=== PATIENT | female | born 1950 | race Caucasian/White ===

== ENCOUNTER 2020-05-17 12:08 | Outpatient (REF) | payer MEDICARE, OTHER, SELFPAY ==
--- NOTE | 2020-05-17 14:51 | MHC.AU.P13 ---
Adult Audiological Evaluation Date of Visit: 05/17/20 Reason for Appointment: Audiological evaluation due to concern for decreased hearing. Ms. Tafoya reports that she mishears people and feels her right ear may be worse. She notes recent pain in the left ear and occasional popping sounds in her ears. Does patient feel they have a hearing loss?: Yes If Yes, Which Ear?: Both Ears When Was Hearing Difficulty First Noticed?: ~ 10 months ago Has hearing been tested previously?: No Hearing Handicap Inventory: HHIE SCORE: 12 Based on HHIE score, patient has: Mild to moderate perceived hearing handicap Ear History: Recent Ear Pain: Left Ear Family History of Hearing Loss?: Yes: Father History of Ear Wax Buildup: Both Ears Blocked/Full Sensation in Ear(s): Occasionally Medical History: Medical History: Dizziness or Unsteadiness, Heart Problems Medical History (Other): 4 c-sections (1977, 1978, 1986, 1988), Cone biopsy in 1979 Medication List: Vitamin D-3 1000 iu, calcium, zinc, vitamin c, magnesium, biotin, Vitamin K2 - MK 7, Flaxseed oil, Lysine Otoscopy: Right Ear: Occluding cerumen. Unable to view TM. Deferred cerumen removal today. Left Ear: Unremarkable Tympanometry: Right Ear: Normal Middle Ear System (Type A) Left Ear: Normal Middle Ear System (Type A) Hearing Evaluation: Transducer(s) Used: Circumaural Headphones, Bone Conduction Method: Conventional Audiometry Stimuli Used: Pure Tones Right Ear: Description of Hearing: Normal hearing at 250 Hz, sloping to a mild sensorineural hearing loss at 500 Hz, rising to normal hearing from 0312-6942 Hz, and sloping to a mild hearing loss at 8000 Hz. Left Ear: Description of Hearing: Normal hearing at 250 Hz, sloping to a mild sensorineural hearing loss at 500-1000 Hz, rising to normal hearing from 7282-6257 Hz. Speech Recognition Threshold (SRT): Method Used: Monitored Live Voice Stimuli Used: Spondee Words Right Ear: 25 dBHL Left Ear: 25 dBHL Word Discrimination: Method: Recorded Lists Word Lists Used: NU-6 Right Ear: 100% at 65 dBHL Left Ear: 100% at 65 dBHL Recommendations: Recommendations: No further audiological action is indicated at this time. Audiological re-evaluation if changes are noted. Amplification is not warranted at this time. Follow-up with physician for cerumen removal. Diagnosis: Primary Diagnosis: H90.3 Bilateral Sensorineural Hearing Loss Secondary Diagnosis: H61.21 Impacted Cerumen, Right Ear Services Performed: Services Performed: Comprehensive Audiological Evaluation (CPT 44497) Tympanometry (CPT 46656) Signature: Provider: Summer Lovell, CCC-A
== END 2020-05-17 12:09 | disposition home or self-care (01) ==
LOC: HO.SH 12:08
PROVIDERS: Visit Provider Internal Medicine
DX: H90.3 Sensorineural hearing loss, bilateral (principal); H61.21 Impacted cerumen, right ear
CPT/HCPCS: 92557; 92567

== ENCOUNTER 2021-01-03 11:42 | Outpatient (REF) | payer MEDICARE, OTHER, SELFPAY ==
--- NOTE | ~2021-01-03 | MM_ITS ---
EXAMINATION: MM SCREENING DIGITAL BREAST TOMOSYNTHESIS, BILATERAL CLINICAL INFORMATION: Screening. Asymptomatic. The lifetime risk of breast cancer based on the Tyrer-Cuzick Model is 3%. COMPARISON: Mammography: 07/18/2018, 03/20/2013 TECHNIQUE: Digital breast tomosynthesis is performed in both the craniocaudal and mediolateral oblique views along with computer-aided detection (CAD). Synthesized 2D images are generated from the tomosynthesis. Additional left MLO view is provided. FINDINGS: The breasts are heterogeneously dense, which may obscure small masses (ACR BI-RADS breast composition Category c). There are no significant masses, abnormal calcifications, or other abnormalities. There are some scattered uniform punctate round calcifications in each breast. The axilla and skin contours are unremarkable. MM/MM tomosynthesis screening BI IMPRESSION: No mammographic evidence of malignancy. ASSESSMENT: BI-RADS 2: Benign RECOMMENDATION: Routine annual mammography screening. This patient's information was entered into a reminder system with a target due date for their next mammogram.
== END 2021-01-03 11:43 | disposition home or self-care (01) ==
LOC: HO.MAMMO 11:42
PROVIDERS: Visit Provider Internal Medicine
DX: Z12.31 Encounter for screening mammogram for malignant neoplasm of breast (principal)
CPT/HCPCS: 77063; 77067

== ENCOUNTER 2021-06-02 10:30 | Outpatient (REF) | payer MEDICARE, OTHER, SELFPAY ==
--- NOTE | ~2021-06-02 | XR_ITS ---
EXAMINATION: XR hip LT w PEL1V CLINICAL INFORMATION: Reason for Exam PAIN IN LEFT HIP COMPARISON: None. TECHNIQUE: Two views of the left hip and one view of the pelvis XR/XR hip LT w PEL1V FINDINGS/IMPRESSION: No acute fracture or dislocation. Hip joint spaces are preserved. Mild degenerative changes of the sacroiliac joints with subchondral sclerosis. Calcified phleboliths in the pelvis.
== END 2021-06-02 10:31 | disposition home or self-care (01) ==
LOC: HO.XRAY 10:30
PROVIDERS: PCP Internal Medicine; Visit Provider Internal Medicine
DX: M25.552 Pain in left hip (principal)
CPT/HCPCS: 73502

== ENCOUNTER 2021-07-05 13:11 | Outpatient (REF) | payer MEDICARE, OTHER, SELFPAY ==
[2021-07-05 13:48] LABS: Appearance Urine CLEAR; Color Urine ORANGE; Glucose Urine UA 100 MG/DL (NEG); Leukocyte Esterase Urine 2+ (NEG); Specific Gravity - Urine 1.015 (1.005-1.025); UACC Culture Trigger YES; Urine Blood TRACE (NEG); Urine Ketones NEG (NEG); Urine Protein 1+ MG/DL (NEG-TRACE)
[2021-07-05 13:57] LABS: Bacteria Urine TRACE /LPF; Mucus Urine TRACE /LPF; RBC Urine 0-2 /HPF (0); Squamous Epithelial Cell Urine TRACE /LPF
== END 2021-07-05 13:12 | disposition home or self-care (01) ==
LOC: HO.LNP 13:11
PROVIDERS: Visit Provider Physician Assistant Medical
DX: R30.0 Dysuria (principal)
CPT/HCPCS: 81001; 87086

== ENCOUNTER → 2021-08-04 13:48 | Outpatient (BNVA) | payer MEDICARE, OTHER, SELFPAY | PROVIDERS: PCP Internal Medicine; Visit Provider Physician Assistant | DX: M54.16 Radiculopathy, lumbar region (principal) | CPT/HCPCS: 99202 ==

== ENCOUNTER 2021-11-29 09:03 | Outpatient (REF) | payer MEDICARE, SELFPAY ==
[2021-11-29 11:23] LABS: Appearance Urine HAZY; Glucose Urine UA 100 MG/DL (NEG); Leukocyte Esterase Urine 2+ (NEG); Nitrite Urine POS (NEG); Specific Gravity - Urine 1.015 (1.005-1.025); UACC Culture Trigger YES; Urine Blood 1+ (NEG); Urine Ketones NEG (NEG); Urine Protein 1+ MG/DL (NEG-TRACE)
[2021-11-29 12:35] LABS: Color Urine ORANGE
[2021-11-29 12:36] LABS: WBC Urine 50-75 /HPF (0-4)
[2021-11-29 12:37] LABS: Squamous Epithelial Cell Urine 1+ /LPF
== END 2021-11-29 09:04 | disposition home or self-care (01) ==
LOC: HO.LNP 09:03
PROVIDERS: Visit Provider Physician Assistant Medical
DX: R30.0 Dysuria (principal)
CPT/HCPCS: 81001; 87086

== ENCOUNTER 2022-01-09 11:57 | Outpatient (REF) | payer MEDICARE, SELFPAY ==
--- NOTE | ~2022-01-09 | MM_ITS ---
EXAMINATION: MM SCREENING DIGITAL BREAST TOMOSYNTHESIS, BILATERAL CLINICAL INFORMATION: Screening. Asymptomatic. The lifetime risk of breast cancer based on the Tyrer-Cuzick Model is 5%. COMPARISON: Mammography: 01/03/2021, 07/18/2018, 03/20/2013 TECHNIQUE: Digital breast tomosynthesis is performed in both the craniocaudal and mediolateral oblique views along with computer-aided detection (CAD). Synthesized 2D images are generated from the tomosynthesis. FINDINGS: The breasts are heterogeneously dense, which may obscure small masses (ACR BI-RADS breast composition Category c). Parenchymal pattern is similar to prior exams and there is no developing density or interval mass or architectural abnormality. The axilla and skin contours are unremarkable. There are some punctate calcifications again seen in both breasts. No significant changes on right. There are questionable increased calcifications versus superimposed digital processing artifact posterior central and posterior lower inner breast. Patient will be recalled for additional imaging. MM/MM tomosynthesis screening BI IMPRESSION: Left: -Question increased punctate calcifications versus superimposed digital processing artifact posterior central/posterior lower inner breast. Right: -No mammographic evidence of malignancy. ASSESSMENT: BI-RADS 0: Incomplete - Need Additional Imaging Evaluation RECOMMENDATION: 1. Additional views of the left breast (magnification CC, magnification LM). 2. Radiology department staff will contact the patient for additional imaging. This patient's information was entered into a reminder system with a target due date for their next mammogram.
--- NOTE | ~2022-01-09 | MM_ITS ---
EXAMINATION: BONE DENSITOMETRY CLINICAL INDICATION: Osteopenia. COMPARISON: Baseline BD dated 03/10/2019. TECHNIQUE: Using a PresenceID DXA System (software version: 13.1) manufactured by [employer], dual-energy x-ray absorptiometry was performed of the lumbar spine and left hip. The images are of good technical quality. Summary results are attached. FINDINGS: AP SPINE L1-L4: Current: BMD 1.131 g/cm2, Z-score 1.8, T-score -0.4, normal, 4.6% decrease from baseline (<5% change is not significant). Baseline: BMD 1.186 g/cm2. LEFT FEMUR, NECK: Current: BMD 0.814 g/cm2, Z-score 0.5, T-score -1.6, osteopenia. Baseline: BMD 0.786 g/cm2. LEFT FEMUR, TOTAL: Current: BMD 0.899 g/cm2, Z-score 1.1, T-score -0.9, normal, 2.5% decrease from baseline (<5% change is not significant). Baseline: BMD 0.922 g/cm2. IDENTIFIED RISK FACTORS: Menopause. HISTORY OF FRACTURE: None listed. MEDICATIONS: Calcium supplements or multivitamin, vitamin D. MM/XR DEXA axial skeleton IMPRESSION: 1. DIAGNOSIS: Osteopenia based on the lowest T-score value of -1.6 in the femoral neck applying World Health Organization criteria. 2. 10-YEAR FRACTURE RISK PREDICTION, FRAX: Major osteoporotic fracture (clinical spine, forearm, hip or shoulder) 9.7%. Hip fracture 1.8%. 3. Treatment Recommendations: NOF guidelines recommend consideration for treatment in postmenopausal women and men age 50 and older presenting with the following: -A hip or vertebral (clinical or morphometric) fracture. -T-score less than or equal to -2.5 at the femoral neck or spine after appropriate evaluation to exclude secondary causes. -Low bone mass at the hip or spine and a 10-year fracture probability by FRAX of greater than or equal to 3% for hip fracture or greater than or equal to 20% for major osteoporotic fracture based on the [place] adapted WHO algorithm. 4. Other Recommendations: All treatment decisions require clinical judgment and consideration of individual patient factors, including patient preferences, comorbidities, previous drug use, risk factors not captured in the FRAX model (e.g. frailty, falls, vitamin D deficiency, increased bone turnover, interval significant decline in bone density) and possible under or overestimation of fracture risk by FRAX. Additional medical evaluation for secondary cause of low bone mineral density may be appropriate. FUTURE SCAN RECOMMENDATION: People with diagnosed cases of osteoporosis or at high risk for fracture should have regular bone mineral density tests. For patients eligible for Medicare, routine testing is allowed once every 2 years. The testing frequency can be increased to one year for patients who have rapidly progressing disease, those who are receiving or discontinuing medical therapy to restore bone mass, or have additional risk factors.
== END 2022-01-09 11:58 | disposition home or self-care (01) ==
LOC: HO.MAMMO 11:57
PROVIDERS: PCP Internal Medicine; Visit Provider Internal Medicine
DX: Z12.31 Encounter for screening mammogram for malignant neoplasm of breast (principal); Z13.820 Encounter for screening for osteoporosis; M85.88 Other specified disorders of bone density and structure, other site; Z78.0 Asymptomatic menopausal state
CPT/HCPCS: 77063; 77067; 77080

== ENCOUNTER 2022-01-15 08:53 | Outpatient (REF) | payer MEDICARE, SELFPAY ==
--- NOTE | ~2022-01-15 | MM_ITS ---
EXAMINATION: MM DIAGNOSTIC DIGITAL MAMMOGRAPHY, LEFT CLINICAL INFORMATION: Recall from screening for question of increased punctate calcifications versus superimposed digital processing artifact pseudo calcifications left breast. COMPARISON: Mammography: 01/09/2022, 01/03/2021, 07/18/2018 TECHNIQUE: Digital mammography is performed in the following views: Magnification CC, magnification LM x2. FINDINGS: The breasts are heterogeneously dense, which may obscure small masses (ACR BI-RADS breast composition Category c). The additional views demonstrate no grouped calcifications or change from prior studies. Results are discussed with the patient at time of visit. MM/MM added views LT IMPRESSION: Additional views show no significant changes from prior exams. ASSESSMENT: BI-RADS 2: Benign RECOMMENDATION: Routine annual mammography screening. This patient's information was entered into a reminder system with a target due date for their next mammogram.
== END 2022-01-15 08:54 | disposition home or self-care (01) ==
LOC: HO.MAMMO 08:53
PROVIDERS: PCP Internal Medicine; Visit Provider Internal Medicine
DX: R92.1 Mammographic calcification found on diagnostic imaging of breast (principal)
CPT/HCPCS: 77065

== ENCOUNTER 2022-04-22 12:26 | Outpatient (REF) | payer MEDICARE, SELFPAY | END 2022-04-22 12:27 | disposition home or self-care (01) | LOC: HO.LAB 12:26 | PROVIDERS: Visit Provider Nurse Practitioner Family | DX: R35.0 Frequency of micturition (principal) | CPT/HCPCS: 87086 ==

== ENCOUNTER 2022-09-04 10:12 | Outpatient (REF) | payer MEDICARE, SELFPAY ==
[2022-09-05 11:53] LABS: BV Int Neg Control Negative (Negative); BV Int Pos Control Positive (Positive)
== END 2022-09-04 10:13 | disposition home or self-care (01) ==
LOC: HO.LAB 10:12
PROVIDERS: Visit Provider Emergency Medicine
DX: R30.0 Dysuria (principal); N89.8 Other specified noninflammatory disorders of vagina
CPT/HCPCS: 87086; 87480; 87510; 87660

== ENCOUNTER 2023-01-15 11:54 | Outpatient (REF) | payer MEDICARE, SELFPAY | END 2023-01-15 11:55 | disposition home or self-care (01) | LOC: HO.MAMMO 11:54 | PROVIDERS: PCP Registered Nurse; Visit Provider Internal Medicine | DX: Z12.31 Encounter for screening mammogram for malignant neoplasm of breast (principal) | CPT/HCPCS: 77063; 77067 ==

== ENCOUNTER → 2023-01-15 12:15 | Outpatient (BNV) | payer MEDICARE, SELFPAY | PROVIDERS: PCP Registered Nurse; Visit Provider Radiology Diagnostic Radiology | DX: Z12.31 Encounter for screening mammogram for malignant neoplasm of breast (principal) | CPT/HCPCS: 77063; 77067 ==

== ENCOUNTER 2023-05-17 08:42 | Outpatient (AMB) | payer MEDICARE, SELFPAY ==
--- NOTE | 2023-05-17 09:12 | MHC.OFFWIV ---
Intake Vital Signs 05/17/23 09:35 Height 5 ft 1 in Weight 117 lb BMI 22.1 BP 130/70 Blood Pressure Location Lt brachial Position Sitting Pulse 6 L Pulse Source Pulse Oximeter Temp 97.6 F Temp Source Temporal Artery Scan Pulse Oximetry (%) 98 Oxygen Delivery Method Room Air Intake Visit Reasons: EST/ UTI(lobby) Intake Note: pt is here today for UTI started yesterday Patient Tobacco Use Status: Never used Tobacco Allergies ntirofurantonin Allergy (Mild, Uncoded 09/04/22 09:32) chills, achiness Erythromycin Allergy (Unknown, Uncoded 09/04/22 09:32) Itching Do you need a note to return to daycare/school/sports/work: No HPI HPI Comments History of Present Illness Details Namrata is a very pleasant 72-year-old female presents to the walk-in clinic today for complaints of dysuria for last 1 day. Patient complaining of burning with urination, she denies fevers, abdominal pain, vaginal discharge or vaginal bleeding. Tolerating po, denies nausea/vomiting/diarrhea. Denies back pain. Patient states that she has not had any urinary tract infections recently, she had been doing well since being started on Premarin but states that over the holidays life became difficult and she was not taking it like she was supposed to. [facility] Medical History Urinary frequency Social History Patient Tobacco Use Status: Never used Tobacco Review of Systems Const All systems reviewed & are unremarkable except as noted in HPI and below Physical Exam Vital Signs: Last Vital Signs Temp 97.6 F 05/17/23 09:35 Pulse 6 L 05/17/23 09:35 BP 130/70 05/17/23 09:35 Pulse Ox 98 05/17/23 09:35 Oxygen Delivery Method Room Air 05/17/23 09:35 BMI result Body Mass Index 22.1 General: awake, alert, oriented. Answers questions appropriately. Fully engaged in examination. Skin: warm, dry, intact HEENT: Normocephalic. Hearing intact. Cardiac: External chest normal in appearance. Respiratory: No cough, audible wheezing or stridor. Abdomen: without gross distension. soft, nontender to palpation MS: No obvious swelling or deformities. Neurological: Oriented to person, place, time and situation. Thought process intact. Psychiatric: Appropriate mood and affect. Good judgment and insight. Results AMB Urinalysis, Automated UA Leukoctes 500 Carolyn/uL Last Edit by Edie Mann CMA on 05/17/23 09:15 UA Nitrite Negative Last Edit by Edie Mann, KARON on 05/17/23 09:15 UA Urobilinogen 0.2 mg/dL Last Edit by Edie Mann, KARON on 05/17/23 09:15 UA Protein 15 mg/dL Last Edit by Edie Mann, KARON on 05/17/23 09:15 UA pH 6.0 Last Edit by Edie Mann, KARON on 05/17/23 09:15 UA Blood 200 Aris/uL Last Edit by Edie Mann, KARON on 05/17/23 09:15 UA Specific [place] 1.025 Last Edit by Edie Mann CMA on 05/17/23 09:15 UA Ketone Negative Last Edit by Edie Mann CMA on 05/17/23 09:15 UA Bilirubin 0 mg/dL Last Edit by Edie Mann CMA on 05/17/23 09:15 UA Glucose 0 mg/dL Last Edit by Edie Mann CMA on 05/17/23 09:15 Results Reviewed Results Reviewed: Laboratory Last Values Urine pH (Auto) 6.0 05/17/23 09:12 Specific [place] (Auto) 1.025 05/17/23 09:12 Urine Protein (Auto) 15 mg/dL 05/17/23 09:12 Glucose (UA)(Auto) 0 mg/dL 05/17/23 09:12 Urine Ketones (Auto) Negative 05/17/23 09:12 Urine Blood (Auto) 200 Aris/uL 05/17/23 09:12 Urine Nitrite (Auto) Negative 05/17/23 09:12 Urine Bilirubin (Auto) 0 mg/dL 05/17/23 09:12 Urine Urobilinogen (Auto) 0.2 mg/dL 05/17/23 09:12 Leukocyte Esterase (Auto) 500 Carolyn/uL 05/17/23 09:12 Assessment & Plan Assessment & Plan (1) Urinary tract infection: Code(s): N39.0 - Urinary tract infection, site not specified Plan Patient presented to walkin clinic with complaints of dysuria X 1 day. UA reviewed, +blood, +leuks. Bactim DS BID X 5 days Pyridium 100mg po BID as needed Drink plenty of fluids, take medications as directed All questions and concerns addressed during visit, patient agrees with plan. Follow up with pcp or return to walk in for any new or worsening symptoms. Orders: Orders AMB Urinalysis Automated Today Z13.9 - Encounter for screening, unspecified RIMMA Zee Medications: New phenazopyridine (Pyridium) 100 mg PO TID PRN 14 tabs 0RF pain Marti Draper APRN, [employer] ENG[employer] sulfamethoxazole-trimethoprim 800-160 mg (Bactrim DS) 1 tab PO BID 10 tabs 0RF Marti Draper APRN, BIOMEDICAL ENGINEERING SUPERVISOR Coding Level of Care Code Est Pt Level 4 (43130) Diagnoses Urinary tract infection N39.0
[2023-05-17 09:35] VITALS: BP 130/70; PULSE 6; TEMP 36.4; O2SAT 98; BMI 22.1
== END 2023-05-17 10:40 | disposition home or self-care (01) ==
PROVIDERS: PCP Registered Nurse; Visit Provider Registered Nurse Emergency
DX: N39.0 Urinary tract infection, site not specified (principal); R30.0 Dysuria
CPT/HCPCS: 81003; 99213

== ENCOUNTER 2023-06-29 08:18 | Outpatient (AMB) | payer MEDICARE, SELFPAY ==
--- NOTE | 2023-06-29 08:25 | AM.OFFWIN_ITS ---
Intake Vital Signs 06/29/23 08:40 Height 5 ft 1 in Weight 115 lb BMI 21.7 BP 152/88 H Blood Pressure Location Lt brachial Position Sitting Pulse 95 Pulse Source Pulse Oximeter Pulse Oximetry (%) 98 Oxygen Delivery Method Room Air Intake Visit Reasons: EP ?UTI Patient Tobacco Use Status: Never used Tobacco Allergies ntirofurantonin Allergy (Mild, Uncoded 09/04/22 09:32) chills, achiness Erythromycin Allergy (Unknown, Uncoded 09/04/22 09:32) Itching Medication List - Last Reviewed 06/29/23 by Paris Olmos MA alprazolam 0.25 mg PO TID PRN conjugated estrogens (Premarin) 0.625 mg vaginal DAILY phenazopyridine (Pyridium) 100 mg PO TID PRN HPI EP ?UTI HPI Details Patient is 72-year-old female came in today to be evaluated for possible urinary tract infection Patient says that she has a history of recurrent UTI, she has an appointment with her primary care next month she will discuss that I see that she was here May 17 for similar symptoms Patient is allergic to nitrofurantoin, she was given Bactrim Patient says that she did feel better after She has no fever no chills no back pain there is no abdominal pain only dysuria and frequency which started 2 days ago Urine is sent for culture [facility] Medical History Urinary frequency Social History Patient Tobacco Use Status: Never used Tobacco Review of Systems Const All systems reviewed & are unremarkable except as noted in HPI and below Physical Exam Vital Signs: Last Vital Signs Pulse 95 06/29/23 08:40 BP 152/88 H 06/29/23 08:40 Pulse Ox 98 06/29/23 08:40 Oxygen Delivery Method Room Air 06/29/23 08:40 BMI result Body Mass Index 21.7 Const General: no acute distress Orientation/consciousness: patient oriented x3 Eyes General: appearance normal, both eyes and all related structures Resp Effort & Inspection: normal respiratory effort and able to speak in complete sentences Auscultation: clear to auscultation bilaterally GI Other: No suprapubic pain General: Yes no CVA tenderness Back/Spine/Pelvis Back: no CVA tenderness Neuro General: patient oriented x3 Psych Mental Status: mental status grossly normal Results AMB Urinalysis, Automated UA Leukoctes 125 Carolyn/uL Last Edit by Jodi Lemus CMA on 06/29/23 08:27 UA Nitrite Negative Last Edit by Jodi Lemus CMA on 06/29/23 08:27 UA Urobilinogen 0.2 mg/dL Last Edit by Jodi Lemus CMA on 06/29/23 08:27 UA Protein 0 mg/dL Last Edit by Jodi Lemus CMA on 06/29/23 08:27 UA pH 6.0 Last Edit by Jodi Lemus CMA on 06/29/23 08:27 UA Blood 25 Aris/uL Last Edit by Jodi Lemus CMA on 06/29/23 08:27 UA Specific [place] 1.010 Last Edit by Jodi Lemus CMA on 06/29/23 08:27 UA Ketone Negative Last Edit by Jodi Lemus CMA on 06/29/23 08:27 UA Bilirubin 0 mg/dL Last Edit by Jodi Lemus CMA on 06/29/23 08:27 UA Glucose 0 mg/dL Last Edit by Jodi Lemus CMA on 06/29/23 08:27 Results Reviewed Results Reviewed: Laboratory Last Values Urine pH (Auto) 6.0 06/29/23 08:21 Specific [place] (Auto) 1.010 06/29/23 08:21 Urine Protein (Auto) 0 mg/dL 06/29/23 08:21 Glucose (UA)(Auto) 0 mg/dL 06/29/23 08:21 Urine Ketones (Auto) Negative 06/29/23 08:21 Urine Blood (Auto) 25 Aris/uL 06/29/23 08:21 Urine Nitrite (Auto) Negative 06/29/23 08:21 Urine Bilirubin (Auto) 0 mg/dL 06/29/23 08:21 Urine Urobilinogen (Auto) 0.2 mg/dL 06/29/23 08:21 Leukocyte Esterase (Auto) 125 Carolyn/uL 06/29/23 08:21 Assessment & Plan Assessment & Plan (1) Acute cystitis: Code(s): N30.00 - Acute cystitis without hematuria Qualifiers: Hematuria presence: without hematuria Qualified Code(s): N30.00 - Acute cystitis without hematuria Plan Patient is 72-year-old female came in today to be evaluated for possible urinary tract infection Patient says that she has a history of recurrent UTI, she has an appointment with her primary care next month she will discuss that I see that she was here May 17 for similar symptoms Patient is allergic to nitrofurantoin, she was given Bactrim Patient says that she did feel better after She has no fever no chills no back pain there is no abdominal pain only dysuria and frequency which started 2 days ago Urine is sent for culture Orders: Orders Urine Culture Today N30.00 - Acute cystitis without hematuria Latosha Mcclendon MD AMB Urinalysis Automated Today Z13.9 - Encounter for screening, unspecified RIMMA Hernandez Medications: Changed From sulfamethoxazole-trimethoprim 800-160 mg (Bactrim DS) 1 tab PO BID 10 tabs 0RF To sulfamethoxazole-trimethoprim 800-160 mg (Bactrim DS) 1 tab PO BID 5 days 10 tabs 0RF Latosha Mcclendon MD Coding Level of Care Code Est Pt Level 3 (61779) Diagnoses Acute cystitis without hematuria N30.00 Hematuria presence: without hematuria
[2023-06-29 08:40] VITALS: BP 152/88; PULSE 95; O2SAT 98; BMI 21.7
== END 2023-06-29 09:42 | disposition home or self-care (01) ==
PROVIDERS: PCP Registered Nurse; Visit Provider Internal Medicine
DX: N30.00 Acute cystitis without hematuria (principal)
CPT/HCPCS: 81003; 99213

== ENCOUNTER 2023-06-29 14:06 | Outpatient (REF) | payer MEDICARE, SELFPAY | END 2023-06-29 14:07 | disposition home or self-care (01) | LOC: HO.HMGCLNP 14:06 | PROVIDERS: Visit Provider Internal Medicine | DX: N30.00 Acute cystitis without hematuria (principal) | CPT/HCPCS: 87086; 87088; 87186 ==

== ENCOUNTER 2023-07-03 09:09 | Outpatient (AMB) | payer MEDICARE, SELFPAY ==
--- NOTE | 2023-07-03 09:23 | MHC.OFFWIV ---
Intake Vital Signs 07/03/23 09:27 Height 5 ft 1 in Weight 115 lb BMI 21.7 BP 130/80 Blood Pressure Location Lt brachial Position Sitting Pulse 64 Pulse Source Pulse Oximeter Pulse Oximetry (%) 97 Oxygen Delivery Method Room Air Intake Visit Reasons: EP UTI seen Wednesday for the same prob. Intake Note: Patient is here for UTI, states she was put on bactrum and has 1 day left but has still been experiencing burning, bladder pressure. Patient Tobacco Use Status: Never used Tobacco Allergies ntirofurantonin Allergy (Mild, Uncoded 07/03/23 09:29) chills, achiness Erythromycin Allergy (Unknown, Uncoded 07/03/23 09:29) Itching Do you need a note to return to daycare/school/sports/work: No HPI HPI Comments History of Present Illness Details Patient is a 72yo F who presents for UTI She was seen wednesday and + Klesiella Pneumonea in urine Given Bactrim x 5 days which was sensitive She has had minimal improvment in symptoms + dysuria, frequency and minimal urgency No hematuria, back pain, fever, vaginal discharge, vaginal odor, urine odor or urine change of color She has been taking medicine as prescribed and hydrating She is concerned due to being on last day on antibiotic + suprapubic pressure still PFSH Medical History Urinary frequency Social History Patient Tobacco Use Status: Never used Tobacco Review of Systems Const Denies body aches, Denies chills and Denies fever(s) Resp Denies cough GI Reports abdominal pain (suprapubic pressure), Reports diarrhea (on day 1 antibiotics. resolved.) and Reports other (constipation usually and takes stool softener) Denies difficulty voiding, Reports dysuria, Denies urinary incontinence, Reports urinary urgency, Denies vaginal discharge, Denies vaginal odor and Denies vaginal pruritus Musc Denies back pain Physical Exam Vital Signs: Last Vital Signs Pulse 64 07/03/23 09:27 BP 130/80 07/03/23 09:27 Pulse Ox 97 07/03/23 09:27 Oxygen Delivery Method Room Air 07/03/23 09:27 BMI result Body Mass Index 21.7 General: Non-toxic, NAD. Speaking full sentences. Skin: Warm dry throughout Eye: EOMI Respiratory: No respiratory distress Abdominal: No CVAT No abdominal tenderness. MSK: Full ROM extremities. Neurology: A/O. No aphasia or facial droop. Gait without abnormality Psych: Good mood and affect Results AMB Urinalysis, Automated UA Leukoctes 0 Carolyn/uL Last Edit by Lilian Diaz CCM on 07/03/23 09:33 UA Nitrite Negative Last Edit by Lilian Diaz [facility] on 07/03/23 09:33 UA Urobilinogen 0.2 mg/dL Last Edit by Lilian Diaz [facility] on 07/03/23 09:33 UA Protein 0 mg/dL Last Edit by Lilian Diaz [facility] on 07/03/23 09:33 UA pH 6.0 Last Edit by Lilian Diaz [facility] on 07/03/23 09:33 UA Blood 10 Aris/uL Last Edit by Lilian Diaz [facility] on 07/03/23 09:33 UA Specific [place] 1.005 Last Edit by Lilian Diaz [facility] on 07/03/23 09:33 UA Ketone Negative Last Edit by Lilian Diaz [facility] on 07/03/23 09:33 UA Bilirubin 0 mg/dL Last Edit by Lilian Diaz [facility] on 07/03/23 09:33 UA Glucose 0 mg/dL Last Edit by Lilian Diaz [facility] on 07/03/23 09:33 Results Reviewed Results Reviewed: Laboratory Last Values Urine pH (Auto) 6.0 07/03/23 09:31 Specific [place] (Auto) 1.005 07/03/23 09:31 Urine Protein (Auto) 0 mg/dL 07/03/23 09:31 Glucose (UA)(Auto) 0 mg/dL 07/03/23 09:31 Urine Ketones (Auto) Negative 07/03/23 09:31 Urine Blood (Auto) 10 Aris/uL 07/03/23 09:31 Urine Nitrite (Auto) Negative 07/03/23 09:31 Urine Bilirubin (Auto) 0 mg/dL 07/03/23 09:31 Urine Urobilinogen (Auto) 0.2 mg/dL 07/03/23 09:31 Leukocyte Esterase (Auto) 0 Carolyn/uL 07/03/23 09:31 Assessment & Plan Assessment & Plan (1) Urinary tract infection: Code(s): N39.0 - Urinary tract infection, site not specified Qualifiers: Urinary tract infection type: acute cystitis Hematuria presence: without hematuria Qualified Code(s): N30.00 - Acute cystitis without hematuria Plan: Pt evaluated Non-toxic appearing Urine improved with 0 leks and improving RBC Discussed results with pt and okay to treat with 2 additional days of medicine Increase fluids F/U with PCP All questons answered at time of d/c Orders: Orders AMB Urinalysis Automated Today R35.0 - Frequency of micturition Medications: New sulfamethoxazole-trimethoprim 800-160 mg 1 tab PO BID 2 days 4 tabs 0RF Coding Level of Care Code Est Pt Level 3 (04305) Diagnoses Acute cystitis without hematuria N30.00 Urinary tract infection type: acute cystitis Hematuria presence: without hematuria
[2023-07-03 09:27] VITALS: BP 130/80; PULSE 64; O2SAT 97; BMI 21.7
== END 2023-07-03 11:16 | disposition home or self-care (01) ==
PROVIDERS: PCP Registered Nurse; Visit Provider Physician Assistant
DX: N30.00 Acute cystitis without hematuria (principal); R35.0 Frequency of micturition
CPT/HCPCS: 81003; 99051; 99213

== ENCOUNTER 2023-07-06 16:04 | Outpatient (AMB) | payer MEDICARE, SELFPAY ==
[2023-07-06 16:05] VITALS: BP 160/78; PULSE 63; O2SAT 93; BMI 21.5
--- NOTE | 2023-07-06 16:05 | MHC.OFFWIV ---
Intake Vital Signs 07/06/23 16:05 Height 5 ft 1 in Weight 113 lb 9 oz BMI 21.5 BP 160/78 H Blood Pressure Location Rt brachial Position Sitting Pulse 63 Pulse Source Pulse Oximeter Pulse Oximetry (%) 93 Oxygen Delivery Method Room Air Intake Visit Reasons: EST/possible allergic reaction to meds (lobby) Intake Note: Pt is here today for possible allergic reaction to med Bactrim. Patient Tobacco Use Status: Never used Tobacco Allergies ntirofurantonin Allergy (Mild, Uncoded 07/03/23 09:29) chills, achiness Erythromycin Allergy (Unknown, Uncoded 07/03/23 09:29) Itching Do you need a note to return to daycare/school/sports/work: No HPI HPI Comments History of Present Illness Details This is a 72-year-old female with a past medical history of anxiety presenting for evaluation of hives that she developed today. Patient states she was on Bactrim for seven days, took her last dose yesterday, developed itching on her palms last night that has resolved and noted hives on her left flank today. Patient took Benadryl 25mg prior to coming to the walk-in. Patient denies having any cough, shortness of breath, swelling of her lips, swelling of her tongue, wheezing, difficulty swallowing, fevers or chills. [facility] Medical History Urinary frequency Social History Patient Tobacco Use Status: Never used Tobacco Review of Systems Const All systems reviewed & are unremarkable except as noted in HPI and below Reports no additional complaints Eyes Reports no additional complaints ENT Reports no additional complaints Card Reports as per HPI Resp Reports as per HPI Skin/Breast Reports system reviewed and no additional complaints, except as documented Physical Exam Vital Signs: Last Vital Signs Pulse 63 07/06/23 16:05 BP 160/78 H 07/06/23 16:05 Pulse Ox 93 07/06/23 16:05 Oxygen Delivery Method Room Air 07/06/23 16:05 BMI result Body Mass Index 21.5 Recheck BP 134/82. Const General: cooperative, comfortable, no acute distress, alert, awake and other (anxious) Nutritional Appearance: thin Orientation/consciousness: patient oriented x3 Limitations: no limitations HEENT Head: Yes normal to inspection and Yes normocephalic Mouth: Normal oral and palatal mucosa present, lip normal, tongue normal, oropharynx normal and moist mucous membranes Throat: Yes posterior oropharynx normal Eyes General: appearance normal, both eyes and all related structures Resp Effort & Inspection: normal respiratory effort, able to speak in complete sentences, no audible wheezes, no respiratory distress, no stridor and not tachypneic Auscultation: clear to auscultation bilaterally Cardio Rate: regular rate Rhythm: regular rhythm Skin Other: there is a single faded erythematous macular lesion measuring 2cm x 3cm on the left flank in the mid-axillary line; no tenderness or warmth to touch; no additional lesions are noted on the neck, anterior/posterior chest wall, back, abdomen or extremities. Lesions: lesion noted Neuro General: patient oriented x3 Psych Appearance: disheveled Mental Status: mental status grossly normal Affect: Anxious affect present Attitude: cooperative Thought process: Normal thought process present Thought content: Normal thought content present Insight: Fair insight present (Psych) Judgement: Fair judgement present (Psych) Assessment & Plan Assessment & Plan (1) Dermatitis: Comment: Patient has a very minor lesion that can not be directly affiliated to her use of Bactrim and is certainly not typical of an exanthematous drug eruption. Code(s): L30.9 - Dermatitis, unspecified Plan: Benadryl 25mg q6 hours as needed; patient reassured, BP reevaluated at 134/82. Patient is told this is not a true allergy to Bactrim for future use. Coding Level of Care Code Est Pt Level 3 (49040) Diagnoses Dermatitis L30.9 Time Spent (min) 20
== END 2023-07-06 16:54 | disposition home or self-care (01) ==
PROVIDERS: PCP Registered Nurse; Visit Provider Physician Assistant
DX: L30.9 Dermatitis, unspecified (principal)
CPT/HCPCS: 99213

== ENCOUNTER 2023-10-02 09:07 | Outpatient (AMB) | payer MEDICARE, SELFPAY ==
[2023-10-02 09:20] VITALS: BP 128/70; PULSE 101; TEMP 37.1; O2SAT 96; BMI 20.9
--- NOTE | 2023-10-02 09:22 | AM.OFFWIN_ITS ---
Intake Vital Signs 10/02/23 09:20 Height 5 ft 1 in Weight 110 lb 6 oz BMI 20.9 BP 128/70 Blood Pressure Location Lt brachial Position Sitting Pulse 101 H Pulse Source Pulse Oximeter Temp 98.8 F Temp Source Oral Pulse Oximetry (%) 96 Oxygen Delivery Method Room Air Oxygen Flow Rate 98.8 Intake Visit Reasons: EP stomach bug Intake Note: Patient is here with stomach bug with vomiting, diarrhea since early this morning. Patient Tobacco Use Status: Never used Tobacco Allergies ntirofurantonin Allergy (Mild, Uncoded 10/02/23 09:23) chills, achiness Erythromycin Allergy (Unknown, Uncoded 10/02/23 09:23) Itching Do you need a note to return to daycare/school/sports/work: No HPI EP stomach bug HPI Details Patient is a 73-year-old female with cardiac history that comes to the walk-in clinic with acute nausea vomiting and diarrhea that started in the middle of the night. She reports that symptoms are already improving as they are slowing down, and her last episode of vomiting and diarrhea was almost an hour ago. She reports no chest pain, shortness of breath, fever or chills, respiratory symptoms, sore throat, weakness or dizziness, headache or vertigo, or other significant associated symptoms. [facility] Medical History Urinary frequency Social History Patient Tobacco Use Status: Never used Tobacco Physical Exam Vital Signs: Last Vital Signs Temp 98.8 F 10/02/23 09:20 Pulse 101 H 10/02/23 09:20 BP 128/70 10/02/23 09:20 Pulse Ox 96 10/02/23 09:20 Oxygen Delivery Method Room Air 10/02/23 09:20 Oxygen Flow Rate 98.8 10/02/23 09:20 BMI result Body Mass Index 20.9 Const General: cooperative, healthy appearing, comfortable, no acute distress, alert, awake, Physically active and well groomed; No anxious, diaphoretic, ill appearing, intoxicated appearing, poor hygiene or tired appearing Nutritional Appearance: average body habitus Orientation/consciousness: oriented to person Limitations: no limitations Chest Chest palpation & inspection: normal palpation of entire chest wall Resp Effort & Inspection: normal respiratory effort, able to speak in complete sentences, no audible wheezes, no cough, no grunting, not labored, no nasal flaring, no retractions and symmetric chest movement Auscultation: clear to auscultation bilaterally, no crackles, no rales, no rhonchi, no wheezes, lung sounds not diminished and No rub present Cardio Rate: regular rate Rhythm: regular rhythm GI Palpation (GI): Soft to palpation, not firm, nontender, no guarding and No hepatosplenomegaly present General: Yes no CVA tenderness Back/Spine/Pelvis Back: no CVA tenderness Skin Other: Good color, warm and dry Neuro General: oriented to person Psych Appearance: grossly normal Mental Status: mental status grossly normal Speech and movement: Normal speech and movement present Affect: normal affect Attitude: cooperative Thought process: Normal thought process present Insight: Good insight present (Psych) Judgement: Good judgement present (Psych) Results AMB Urinalysis, Automated UA Leukoctes 0 Carolyn/uL Last Edit by Gem Miller CMA on 10/02/23 10:12 UA Nitrite Negative Last Edit by Gem Miller CMA on 10/02/23 10:12 UA Urobilinogen 0.2 mg/dL Last Edit by Gem Miller CMA on 10/02/23 10:12 UA Protein 0 mg/dL Last Edit by Gem Miller CMA on 10/02/23 10:12 UA pH 6.0 Last Edit by Gem Miller CMA on 10/02/23 10:12 UA Blood 2 Aris/uL Last Edit by Gem Miller CMA on 10/02/23 10:12 UA Specific [place] 1.030 Last Edit by Gem Miller CMA on 10/02/23 10:1 2 UA Ketone Positive Last Edit by Gem Miller CMA on 10/02/23 10:12 UA Bilirubin 0 mg/dL Last Edit by Gem Miller CMA on 10/02/23 10:12 UA Glucose 0 mg/dL Last Edit by Gem Miller CMA on 10/02/23 10:12 Results Reviewed Results Reviewed: Laboratory Last Values Urine pH (Auto) 6.0 10/02/23 10:10 Specific [place] (Auto) 1.030 10/02/23 10:10 Urine Protein (Auto) 0 mg/dL 10/02/23 10:10 Glucose (UA)(Auto) 0 mg/dL 10/02/23 10:10 Urine Ketones (Auto) Positive 10/02/23 10:10 Urine Blood (Auto) 2 Aris/uL 10/02/23 10:10 Urine Nitrite (Auto) Negative 10/02/23 10:10 Urine Bilirubin (Auto) 0 mg/dL 10/02/23 10:10 Urine Urobilinogen (Auto) 0.2 mg/dL 10/02/23 10:10 Leukocyte Esterase (Auto) 0 Carolyn/uL 10/02/23 10:10 Urinalysis positive for ketones and trace blood, but no urinary symptoms. Twelve lead EKG unremarkable and nondiagnostic for STEMI. Assessment & Plan Assessment & Plan (1) Gastroenteritis: Code(s): K52.9 - Noninfective gastroenteritis and colitis, unspecified Plan: Patient is a 73-year-old female with cardiac history, who comes to the walk-in clinic complaining of acute gastroenteritis symptoms, that are already improving. Her vitals are stable other than being slightly tachycardic when she 1st arrived, however she is very worried that this is a cardiac episode due to her history of leaky valve . Twelve lead EKG is nondiagnostic for STEMI, which was done today as she was mildly tachycardic initial vital signs, however this improved on exam, and likely is due to anxiety. Patient's symptoms are already improving, and she has not even started Zofran, which she did have at home but did not take a she was worried she would vomit it back up. Therefore I will write her for disintegrating Zofran today, and she should continue fluid intake as tolerated. She can start with a bland diet as tolerated also. She should follow up if symptoms persist or worsen, or go to the emergency department with worrisome symptoms. Orders: Orders SARS-CoV2/FLU/RSV 10/02/23 R09.89 - Other specified symptoms and signs involving the circulatory and respiratory systems AMB Urinalysis Automated 10/02/23 R35.0 - Frequency of micturition Medications: New ondansetron 4 mg PO TID PRN 15 tabs 0RF nausea and vomiting 5 days Coding Level of Care Code Est Pt Level 4 (69706) Diagnoses Gastroenteritis K52.9
== END 2023-10-02 12:16 | disposition home or self-care (01) ==
PROVIDERS: PCP Registered Nurse; Visit Provider Physician Assistant Medical
DX: K52.9 Noninfective gastroenteritis and colitis, unspecified (principal)
CPT/HCPCS: 81003; 99051; 99214

== ENCOUNTER 2023-10-02 10:19 | Outpatient (REF) | payer MEDICARE, SELFPAY ==
[2023-10-02 15:22] LABS: Influenza A PCR NEGATIVE (Negative); Influenza B PCR NEGATIVE (Negative); Resp Syncy Virus RNA Qual PCR NEGATIVE (Negative); SARS COV2 PCR INHOUSE NEGATIVE (Negative)
== END 2023-10-02 10:20 | disposition home or self-care (01) ==
LOC: HO.LAB 10:19
PROVIDERS: Visit Provider Physician Assistant Medical
DX: R09.89 Other specified symptoms and signs involving the circulatory and respiratory systems (principal); J06.9 Acute upper respiratory infection, unspecified
CPT/HCPCS: 0241U

== ENCOUNTER 2024-01-06 10:35 | Outpatient (AMB) | payer MEDICARE, SELFPAY ==
--- NOTE | 2024-01-06 11:02 | MHC.OFFWIV ---
Intake Vital Signs 01/06/24 11:04 01/06/24 11:29 Height 5 ft 1 in Weight 112 lb BMI 21.2 BP 124/82 Blood Pressure Location Rt brachial Position Sitting Pulse 50 68 Pulse Source Pulse Oximeter Pulse Oximeter Pulse Oximetry (%) 98 Oxygen Delivery Method Room Air Intake Visit Reasons: EP-uti Intake Note: Patient here for bladder tenderness, vaginal burning, bladder fullness but only urinating a small amount. Patient Tobacco Use Status: Never used Tobacco Allergies ntirofurantonin Allergy (Mild, Uncoded 01/06/24 11:05) chills, achiness Erythromycin Allergy (Unknown, Uncoded 01/06/24 11:05) Itching Do you need a note to return to daycare/school/sports/work: No HPI HPI Comments History of Present Illness Details Patient is a 73-year-old female complaining of 2 days of burning with urination and increased frequency. She denies any fevers, blood in her urine or low back pain. She says she gets urinary tract infections frequently and used to be on Bactrim daily but is not on it any longer. [facility] Medical History Urinary frequency Social History Patient Tobacco Use Status: Never used Tobacco Review of Systems Const All systems reviewed & are unremarkable except as noted in HPI and below Physical Exam Vital Signs: Last Vital Signs Pulse 50 01/06/24 11:04 BP 124/82 01/06/24 11:04 Pulse Ox 98 01/06/24 11:04 Oxygen Delivery Method Room Air 01/06/24 11:04 BMI result Body Mass Index 21.2 Const General: cooperative, healthy appearing, comfortable, no acute distress and well developed Orientation/consciousness: patient oriented x3 Limitations: no limitations HEENT Head: Yes normal to inspection Ears: hearing grossly normal bilaterally General nose exam: Normal external nose present Face and sinus: Yes normal facial exam Eyes General: appearance normal, both eyes and all related structures Neck Neck: Yes normal visual inspection and Yes full ROM Resp Effort & Inspection: normal respiratory effort and able to speak in complete sentences Skin General skin exam: no rashes or lesions noted Neuro General: patient oriented x3 Extrem General: Yes normal to inspection Results AMB Urinalysis, Automated UA Leukoctes 0 Carolyn/uL Last Edit by Lilian Diaz [facility] on 01/06/24 11:26 UA Nitrite Negative Last Edit by Lilian Diaz [facility] on 01/06/24 11:26 UA Urobilinogen 0.2 mg/dL Last Edit by Lilian Diaz [facility] on 01/06/24 11:26 UA Protein 0 mg/dL Last Edit by Lilian Diaz [facility] on 01/06/24 11:26 UA pH 6.0 Last Edit by BarbPedro Diaz [facility] on 01/06/24 11:26 UA Blood 25 Aris/uL Last Edit by BarbPedro Diaz [facility] on 01/06/24 11:26 UA Specific [place] 1.005 Last Edit by Lilian Diaz [facility] on 01/06/24 11:26 UA Ketone Negative Last Edit by Lilian Diaz [facility] on 01/06/24 11:26 UA Bilirubin 0 mg/dL Last Edit by Lilian Diaz [facility] on 01/06/24 11:26 UA Glucose 0 mg/dL Last Edit by BarbPedro Diaz [facility] on 01/06/24 11:26 Assessment & Plan Assessment & Plan (1) Urinary tract infection: Code(s): N39.0 - Urinary tract infection, site not specified Qualifiers: Urinary tract infection type: acute cystitis Hematuria presence: without hematuria Qualified Code(s): N30.00 - Acute cystitis without hematuria Plan: Gave red flag warning signs and when patient should go to the emergency department. Sent antibiotics to pharmacy, UA negative for infection but positive for blood Plan See above Orders: Orders AMB Urinalysis Automated Today Z13.9 - Encounter for screening, unspecified Medications: New cefuroxime axetil 500 mg PO Q12H 10 tabs 0RF Coding Level of Care Code New Pt Level 3 (44484) Diagnoses Acute cystitis without hematuria N30.00 Urinary tract infection type: acute cystitis Hematuria presence: without hematuria
[2024-01-06 11:04] VITALS: BP 124/82; PULSE 50; O2SAT 98; BMI 21.2
[2024-01-06 11:29] VITALS: PULSE 68
== END 2024-01-06 11:40 | disposition home or self-care (01) ==
PROVIDERS: PCP Registered Nurse; Visit Provider Physician Assistant
DX: Z13.9 Encounter for screening, unspecified (principal); N30.00 Acute cystitis without hematuria
CPT/HCPCS: 81003; 99203; 99213

== ENCOUNTER 2024-02-17 08:38 | Outpatient (AMB) | payer MEDICARE, SELFPAY ==
--- NOTE | 2024-02-17 08:41 | MHC.OFFWIV ---
Intake Vital Signs 02/17/24 08:46 Height 5 ft 1 in Weight 112 lb BMI 21.2 BP 128/80 Blood Pressure Location Lt brachial Position Sitting Pulse 78 Pulse Source Pulse Oximeter Pulse Oximetry (%) 100 Oxygen Delivery Method Room Air Intake Visit Reasons: EP-posible uti Intake Note: Patient here for burning when urinating, frequent urination and nausea which has been present for about 3 days. Patient Tobacco Use Status: Never used Tobacco Allergies ntirofurantonin Allergy (Mild, Uncoded 02/17/24 08:47) chills, achiness Erythromycin Allergy (Unknown, Uncoded 02/17/24 08:47) Itching Do you need a note to return to daycare/school/sports/work: No HPI HPI Comments History of Present Illness Details Patient is a 73-year-old female complaining of 3 days of burning with urination and increased frequency of urination. She tells me she woke up this morning with some nausea and took some Zofran and that seemed to help a little bit but she still a little nauseous. She also states she had some diarrhea this morning. She denies any low back pain, fevers or blood in her urine. She denies a history of kidney stones. She does tell me she has not been taking her Premarin as much as she should be using it because she is very busy with life right now. And she is wondering if that is contributing to her frequent UTIs. [facility] Medical History Urinary frequency Social History Patient Tobacco Use Status: Never used Tobacco Review of Systems Const All systems reviewed & are unremarkable except as noted in HPI and below Physical Exam Vital Signs: Last Vital Signs Pulse 78 02/17/24 08:46 BP 128/80 02/17/24 08:46 Pulse Ox 100 02/17/24 08:46 Oxygen Delivery Method Room Air 02/17/24 08:46 BMI result Body Mass Index 21.2 Const General: cooperative, healthy appearing, comfortable and no acute distress Orientation/consciousness: patient oriented x3 HEENT Head: Yes normal to inspection Ears: hearing grossly normal bilaterally General nose exam: Normal external nose present Face and sinus: Yes normal facial exam Neck Neck: Yes normal visual inspection, Yes trachea midline and Yes supple Resp Effort & Inspection: normal respiratory effort and able to speak in complete sentences Skin General skin exam: no rashes or lesions noted Neuro General: patient oriented x3 Psych Appearance: grossly normal Speech and movement: Normal speech and movement present Attitude: cooperative Thought process: Normal thought process present Insight: Good insight present (Psych) Judgement: Good judgement present (Psych) Assessment & Plan Assessment & Plan (1) Acute cystitis: Code(s): N30.00 - Acute cystitis without hematuria Qualifiers: Hematuria presence: without hematuria Qualified Code(s): N30.00 - Acute cystitis without hematuria Plan: UA positive for 1+ blood, negative for leukocyte esterase or nitrites. We will treat based on symptoms, sent antibiotic to pharmacy. Plan See above Medications: New cefuroxime axetil 500 mg PO Q12H 10 tabs 0RF Coding Level of Care Code New Pt Level 3 (88731) Diagnoses Acute cystitis without hematuria N30.00 Hematuria presence: without hematuria
[2024-02-17 08:46] VITALS: BP 128/80; PULSE 78; O2SAT 100; BMI 21.2
== END 2024-02-17 09:22 | disposition home or self-care (01) ==
PROVIDERS: PCP Registered Nurse; Visit Provider Physician Assistant
DX: Z13.9 Encounter for screening, unspecified (principal); N30.00 Acute cystitis without hematuria

== ENCOUNTER → 2024-02-17 08:38 | Outpatient (BNVA) | payer MEDICARE, SELFPAY | PROVIDERS: PCP Registered Nurse; Visit Provider Physician Assistant | DX: N30.00 Acute cystitis without hematuria (principal) | CPT/HCPCS: 81003; 99202 ==

== ENCOUNTER 2024-02-22 09:05 | Outpatient (REF) | payer MEDICARE, SELFPAY ==
[2024-02-22 14:44] LABS: MANUAL DIFF FLAG NO
[2024-02-22 14:48] LABS: Basophils Percent Auto 0.9 % (0-2); Eosinophils Absolute Auto 0.2 X10*3/uL (0.0-0.4); Eosinophils Percent Auto 3.5 % (0-4); Hematocrit 38.5 % (37.0-47.0); Hemoglobin 13.7 g/dl (12.0-16.0); Imm Gran Abs Auto 0.01 X10*3/uL (0.00-0.03); Imm Gran Pct Auto 0.2 % (0.0-0.4); Lymphocytes Absolute Auto 1.7 X10*3/uL (1.2-4.9); Mean Corpuscular HGB Conc 35.6 g/dl (31.0-35.0); Mean Corpuscular Hemoglobin 32.5 pg (27.0-33.0); Mean Corpuscular Volume 91.2 fL (80.0-98.0); Mean Platelet Volume 10.6 fL (9.4-12.3); Monocytes Absolute Auto 0.4 X10*3/uL (0.1-1.2); Monocytes Percent Auto 8.1 % (2-11); NRBC Pct Auto 0.5 /100WBC (0.0-0.2); Neutrophils Percent Auto 47.3 % (45-73); Platelet Count 217 X10*3/uL (160-400); Red Blood Count 4.22 X10*6/uL (4.20-5.50); Red Cell Distribution Width 12.1 % (11.0-16.0); White Blood Count 4.3 X10*3/uL (4.8-10.8)
[2024-02-22 14:58] LABS: Estimated Average Glucose 105 mg/dL; Hemoglobin A1C 117.7066 umol/L; Hemoglobin A1c % 5.3 % (<6.0); Total Hemoglobin (HGBA1C) 3425.1903 umol/L
[2024-02-22 15:19] LABS: Alanine Aminotransferase 12 U/L (0-31); Albumin Level 4.3 g/dL (3.5-5.0); Alkaline Phosphatase 60 U/L (39-117); Anion Gap 13 (12-20); Aspartate Amino Transferase 21 U/L (5-31); Bilirubin Total 0.7 mg/dL (0.0-1.0); Blood Urea Nitrogen 14 mg/dL (9-16); Calcium 9.7 mg/dL (8.4-10.2); Carbon Dioxide 29 mmol/L (22-29); Chloride 104 mmol/L (96-108); Cholesterol 205 mg/dL (<200); Estimated Glomerular Filt Rate > 60; Glucose Random 89 mg/dL (60-115); HDL Cholesterol 69 mg/dL (>40); Iron 103 mcg/dL (30-160); LDL Cholesterol Calculated 122 mg/dL (<100); Percent Iron Saturation 39 % (15-50); Sodium 142 mmol/L (135-145); Total Iron Binding Capacity 265 mcg/dL (228-428); Total Protein 6.6 g/dL (6.5-8.0); Triglycerides 70 mg/dL (<150); Unsaturated Iron Binding 162 ug/dL
[2024-02-22 15:22] LABS: Ferritin 83 ng/mL (10-250); TSH reflex Free T4 1.55 uIU/mL (0.32-4.0); Vitamin D 25-OH Total 93.5 ng/mL (>30)
[2024-02-22 15:38] LABS: Folate 13.6 ng/mL (> or = 4.0); Vitamin B12 986 pg/mL (200-900)
[2024-02-23 08:42] LABS: ~HepC Num1 0.06 S/CO (0.00-0.79); ~Hepatitis C Antibody Nonreactive (Nonreactive)
== END 2024-02-22 09:06 | disposition home or self-care (01) ==
LOC: HO.CHCLDS 09:05
PROVIDERS: Visit Provider Registered Nurse
DX: Z00.00 Encounter for general adult medical examination without abnormal findings (principal); Z13.6 Encounter for screening for cardiovascular disorders; Z13.1 Encounter for screening for diabetes mellitus
CPT/HCPCS: 36415; 80053; 80061; 82306; 82607; 82728; 82746; 83036; 83540; 84443; 85025; 86803

== ENCOUNTER 2024-12-02 20:52 | Emergency (ER) | payer MEDICARE, SELFPAY ==
[2024-12-02 21:03] VITALS: BP 149/89; PULSE 84; RESP 14; TEMP 36.7; O2SAT 99
--- OUTSIDE RECORDS SUMMARY | 2024-12-02 21:55 | XMS_ITS | Clinical Summary ---
Author Organization [facility] ity Address [address] [place] [address] Care Team Providers Care Assistant Counsel Name Role Phone Unavailable Primary Care Provider Unavailabl e Social History Tobacco Use Types Packs/Day Years Used Date Smoking Tobacco: Never Assessed Comments Unknown Sex and Gender Information Value Date Recorded Sex Assigned at Not on file Legal Sex Female 12:35 AM EST Gender Identity Not on file Sexual Orientation Not on file Plan of Treatment Health Maintenance Due Date Last Done Comments DTaP,Tdap,and Td Vaccines (1 - Tdap) 1969 Pneumococcal Vaccine: 50+ Ye ars (1 of 1 - PCV) 08/28/1999 Zoster Vaccines (1 of 2) 08/28/1999 Colorectal Cancer Screening: Colonoscopy 04/12/2022 Falls Risk Assessment 04/12/2022 Hepatitis C Screening 04/12/2022 Osteoporosis Screening (Bone Density Screening) 04/12/2022 Social Influencers of Health Screening 04/12/2022 COVID-19 Vaccine (1 - 2023-2 5 season) 2024 Depression Screening 05/10/2024 RSV Immunization Adult Patie nts (1 - 1-dose 75+ series) 2024 Influenza Vaccine (#1) 2025 HIB Vaccines Aged Out No longer eligi ble based on patient's age to complete this topic HPV Vaccines Aged Out No longer eligi ble based on patient's age to complete this topic Hepatitis A Vaccines Aged Out No long er eligible based on patient's age to complete this topic Hepatitis B Vaccines Aged Out No long er eligible based on patient's age to complete this topic IPV Vaccines Aged Out No longer eligi ble based on patient's age to complete this topic MMR Vaccines Aged Out No longer eligi ble based on patient's age to complete this topic Meningococcal ACWY Vaccine Aged Out N o longer eligible based on patient's age to complete this topic Meningococcal B Vaccine Aged Out No l onger eligible based on patient's age to complete this topic RSV Immunization Patients Un lzizie 20 months Aged Out No longer eligible b ased on patient's age to complete this topic Varicella Vaccines Aged Out No longer eligible based on patient's age to complete this topic
--- OUTSIDE RECORDS SUMMARY | 2024-12-02 21:55 | XMS_ITS | Encounter Summary ---
Author Organization [facility] Address [address] [place] [address] [address] [place] [address] Care Team Providers Care Staffing Manager Name Role Phone Milla Quigley Primary Care Provider [phone] Reason for Visit * Reason Comments Med Change Request Encounter Details Date Type Department Care Team ([facility] Contact Info) Description 03/29/2024 Refill [facility] [address] [place] [address] Milla Quigley FNP [address] [place] [address] Social History Tobacco Use Types Packs/Day Years Used Date Smoking Tobacco: Never Passive Smoke Exposure: Never Smokeless Tobacco: Never Alcohol Use Standard Drinks/Week Comments Not Currently 0 (1 standard drink = 0.6 oz pur e alcohol) Alcohol Answer Date Recorded Frequency of Alcohol Consumption Not on file 11/18/2023 Average Number of Drinks Not on file 024 Frequency of Binge Drinking Not on file 11/07 Score 0 11/18/2023 Depression Answer Date Recorded Patient Health Questionnaire-9 Score 0 11/18/2023 Patient Health Questionnaire-9 Score 0 11/18/2023 Last PHQ-9: Questionnaire Data Not on file 0 11/18/2023 Housing Stability Answer Date Recorded What is your housing situation today? I have karina brown 11/09/[address] you li ve. Do you have problems with any of the following? None of the above 11/09/2023 Food Insecurity Answer Date Recorded Within the past 12 months, y ou worried that your food would run out before you got money to buy more: Never True 11/09/2023 Within the past 12 months,th e food you bought just didn't last and you didn't have enough money to get more: Never True 06/2023 Transportation Answer Date Recorded In the past 12 months, has l ack of transportation kept you from medical appts, meetings, work or from getting things needed for daily living? No 11/09/2023 Utilities Answer Date Recorded In the past 12 months, has t he electric, gas, oil or water company threatened to shut off services in your home? No 11/09/2023 Depression Answer Date Recorded Patient Health Questionnaire-2 Score 0 11/18/2023 Internet Access Answer Date Recorded Internet Access Q1 Yes 01/10/2024 Internet Access Q2 Not on file 01/10/2024 Comments Unknown Sex and Gender Information Value Date Recorded Sex Assigned at Female 03/09/2022 10:17 AM EDT Legal Sex Female 10:17 AM EDT Gender Identity Female 03/09/2022 10:17 AM EDT Sexual Orientation Choose not to disclose 2021 10:17 AM EDT documented as of this encounter Miscellaneous Notes * Telephone Encounter - RIMMA Trejo - 04/25/2024 8:50 AM EST Please check with pharmacy if there is a generic or alternative that is covered by insurance, thankyou! documented in this encounter Plan of Treatment Not on file documented as of this encounter Visit Diagnoses Not on filedocumented in this encounter Additional Health Concerns Assessment Noted Time PHQ-9 Depression Total Score: 0 11/18/19 24 10:28 AM EDT documented as of this encounter Care Teams Staffing Manager Relationship Specialty Start Date End Date Milla Quigley FNP [address] [place] [id number] PCP - General Family Medicine 03/31/22 documented as of this encounter
--- NOTE | 2024-12-02 22:07 | ED.WOUNDLAC ---
HPI - Wound/Laceration General Chief Complaint: Wound/Laceration Stated Complaint: left thumb wound Time Seen by Provider: 12/02/24 21:50 Source: patient Mode of arrival: ambulatory Limitations: no limitations History of Present Illness ED Provider: Dr. Brandy Garcia HPI narrative: Patient comes to the emergency room complaining of a laceration to the thumb, palmar aspect. According to the patient, a proximally 2 hours ago, she was trying to cut a pepper for dinner with a new knife and ended up cutting her finger. Patient denies any other injuries, denies being on blood thinners. Patient complaining of localized pain. Patient states that her last Tdap booster was given in 2023 Related Data Home Medications ?Medication ?Instructions ?Recorded ?Confirmed alprazolam 0.25 mg tablet 0.25 mg PO TID PRN 05/24/21 06/29/23 conjugated estrogens 0.625 mg/gram 0.625 mg vaginal DAILY 04/22/22 06/29/23 vaginal cream (Premarin) Previous Rx's ?Medication ?Instructions ?Recorded ondansetron 4 mg disintegrating 4 mg PO TID PRN nausea and 10/02/23 tablet vomiting 5 days #15 tabs cefuroxime axetil 500 mg tablet 500 mg PO Q12H #10 tabs 02/17/24 Allergies Allergy/AdvReac Type Severity Reaction Status Date / Time ntirofurantonin Allergy Mild chills, Uncoded 12/02/24 21:07 achiness Erythromycin Allergy Unknown Itching Uncoded 12/02/24 21:07 Review of Systems Review of Systems: Constitutional : No Weight loss, No Fever, No Chills, No Night Sweats, No Fatigue, No Malaise ENT/Mouth : No Hearing loss, No Ear Pain, No Nasal Congestion, No Sinus Pain, No Hoarseness, No sore throat, No Rhinorrhea, No Swallowing Difficulty Eyes: No Eye Pain, No Swelling, No Redness, No Foreign Body, No Discharge, No Vision Changes Cardiovascular : No Chest Pain, No SOB, No Dyspnea on Exertion, No Orthopnea, No Edema, No Palpitations Respiratory : No Cough, No Sputum, No Wheezing, No Smoke Exposure, No Dyspnea Gastrointestinal : No Nausea, No Vomiting, No Diarrhea, No Constipation, No abdominal Pain, No Hematochezia, No Melena Genitourinary : no irregular bleeding, No Dysuria, No Urinary Frequency, No Hematuria, No Urinary Incontinence, No Urgency, No Flank Pain, No Urinary Flow Changes, No Hesitancy Musculoskeletal : No joint pain, No Myalgias, No Joint Swelling Skin : Complaining of a laceration to the left thumb, palmar aspect Neuro : No Weakness, No Numbness, No Paresthesias, No Loss of Consciousness, No Dizziness, No Headache Psych : No Anxiety/Panic, No Depression, No SI/HI/AH/VH, No Social Issues, Heme/Lymph: No Bruising, No Bleeding,No Lymphadenopathy Endocrine : No Polyuria, No Polydipsia, No Temperature Intolerance [facility] Past Medical History Medical History Urinary frequency Social History Social History Patient Tobacco Use Status: Never used Tobacco Smoked in Last 30 Days: No Use of substances other than those prescribed or required for medical reasons: No Advance Directives: No Advance Directives Information Provided: No Do you have a plan to hurt others: No Plan Physical Exam Exam: Exam: Appearance: Alert. Oriented X3. No acute distress. Eyes: Pupils equal, round and reactive to light. ENT: Pharynx normal. Neck: Normal inspection. Neck supple. No lymph nodes noted. No crepitus CVS: Normal heart rate and rhythm. Pulses normal. Normal S1 and S2 Respiratory: No respiratory distress. Breath sounds normal. No Wheezing. No rales Abdomen: Soft and nontender. No rigidity. No distention. Skin: Skin warm and dry. Normal skin color. Normal skin turgor. See extremities below Extremities: No lower extremity edema. No Lacerations. No Rash. On the left thumb palmar aspect, there is 1 cm superficial laceration. No stitches required. Bleeding controlled with pressure. Patient is able to flex and extend the thumb, able to oppose it, no tendons were visualized. Neuro: Oriented X 3. No motor deficit. No sensory deficit. Moving all extremities. No slurred speech. CN 2 through 12 grossly intact Psych: calm, cooperative, normal affect Vital Signs: Vital Signs: Last Vital Signs Temp 98.1 F 12/02/24 21:03 Pulse 84 12/02/24 21:03 Resp 14 12/02/24 21:03 BP 149/89 H 12/02/24 21:03 Pulse Ox 99 12/02/24 21:03 O2 Del Method Room Air 12/02/24 21:03 BMI result Body Mass Index 20.0 Course Course Course Narrative: Patient has a superficial laceration to the left thumb. Bleeding controlled, not on blood thinners, Tdap up-to-date Medical Decision Making Medical Decision Making [facility] Narrative: I discussed the physical exam with the patient, at this time, there is no clear indication for stitches. Patient's wound was thoroughly cleaned and Dermabond was applied. Patient agrees with plan. Discharge Plan Discharge Clinical Impression: Laceration Patient Disposition: Home, Self-Care Instructions: Finger Laceration (ED) Additional Instructions: Please follow-up with your primary care physician tomorrow. If you have any worsening or new symptoms, please return to the emergency room or call 911 Prescriptions: No Action alprazolam 0.25 mg tablet 0.25 mg PO TID PRN Premarin 0.625 mg/gram cream 0.625 mg vaginal DAILY Rx Instructions: off 5 days; repeat cycle ondansetron 4 mg tablet,disintegrating 4 mg PO TID PRN (Reason: nausea and vomiting) 5 Days Qty: 15 0RF cefuroxime axetil 500 mg tablet 500 mg PO Q12H Qty: 10 0RF Print Language: Greenlandic
[2024-12-02 22:21] VITALS: BP 149/89; PULSE 84; RESP 14; TEMP 36.7; O2SAT 99
== END 2024-12-02 22:21 | disposition home or self-care (01) ==
PROVIDERS: Emergency Provider Emergency Medicine; PCP Registered Nurse
DX: S61.012A Laceration without foreign body of left thumb without damage to nail, initial encounter (principal); W26.0XXA Contact with knife, initial encounter; M79.645 Pain in left finger(s); Y93.G1 Activity, food preparation and clean up; Y92.000 Kitchen of unspecified non-institutional (private) residence as the place of occurrence of the external cause; Y99.9 Unspecified external cause status
CPT/HCPCS: 99282; 99284